=== PATIENT | female | born 1990 | race African-American/Black ===

== ENCOUNTER 2025-08-12 20:06 | Emergency (ER) | payer OTHER ==
[~2025-08-12] VITALS: Ht 170.2 cm; Wt 55.5 kg
[2025-08-12 20:27] VITALS: TEMP 98.1
[2025-08-12] MEDS ORDERED: FERR-56 PO (20:56)
[2025-08-12] MEDS ORDERED: IBUPROFEN 600 MG TABLET ONE (20:57)
[2025-08-12] MEDS: IBUPROFEN 600 MG TABLET PO ONE (21:10)
[2025-08-12] MEDS ORDERED: IBUP-1490 PO (21:22)
[2025-08-12 21:50] LABS: PLATELET COUNT (AUTO) 291 K/uL (150-450); RED BLOOD CELL COUNT(AUTO) 3.52 MIL/uL (4.0-5.2); RED CELL DISTRIBUTION WIDTH 17.4 % (11.5-15.0); WHITE BLOOD COUNT (AUTO) 8.7 K/uL (4.3-11.0)
[2025-08-12 21:55] LABS: CALCIUM, SERUM 8.7 mg/dL (8.5-10.1); CREATININE 0.6 mg/dL (0.6-1.3); SODIUM SERUM 139.0 mmol/L (136-145); UREA NITROGEN, BLOOD 16.0 mg/dL (7-18)
[2025-08-12 22:13] LABS: ASPARTATE AMINOTRANSFERASE 20.0 U/L (15-37); PREGNANCY TEST SERUM QUAN 0.0 mIU/mL (0-6); TOTAL PROTEIN, SERUM 6.8 g/dL (6.4-8.2)
[2025-08-12 22:34] VITALS: BP 109/66; O2SAT 99
== END 2025-08-12 22:34 | disposition home or self-care (01) ==
LOC: ER 20:27
DX: N83.202 Unspecified ovarian cyst, left side (principal); R10.20 Pelvic and perineal pain unspecified side; N91.2 Amenorrhea, unspecified; Z86.018 Personal history of other benign neoplasm; Z76.0 Encounter for issue of repeat prescription; Z60.2 Problems related to living alone
CPT/HCPCS: 36415; 76856-TC; 80048-TC; 80076-TC; 83690-TC; 84702-TC; 85025-TC